=== PATIENT | male | born 1955 | race Caucasian/White ===

== ENCOUNTER 2017-10-20 13:30 | Outpatient (CLI) | payer OTHER ==
[~2017-10-20 13:30] MED LIST: Iopamidol 370 76% 100 ML VIAL ONE
--- NOTE | 2017-10-20 18:42 | CT ---
CT ABDOMEN WITH AND WITHOUT CONTRAST CT PELVIS WITH AND WITHOUT CONTRAST (CT UROGRAM) 10/20/17 HISTORY: 62-year-old male with microscopic hematuria. Dr. Moscoso discussed all the relevant findings by telephone with Dr. Freddy Quiroz at 3:09 p.m. on . COMPARISON: None. TECHNIQUE: No oral contrast. IV contrast: Isovue. Precontrast, nephrographic/venous phase, and pyelographic/excretory phase, scans of entire abdomen an d pelvis. Coronal reconstructions of pyelographic/excretory phase. FINDINGS: There are multiple left parapelvic renal cysts. There is no hydroureteronephrosis. No renal, ureteral , or bladder calculus is identified. Urinary bladder is nearly empty. Absent prostate gland. Multiple surgical clips in the prostate bed. There is hyperdense material suggestive of either retained bariu m or appendicoliths, within the lumen of the distal appendix. There is currently no acute appendiciti s. No small bowel dilation. No acute colonic diverticulitis. Mild vascular calcifications of abdomina l aorta without aneurysm. No solid renal mass or renal infarction identified. The distal 2/3 of the gallbladder is contracted, has diffuse wall thickening with increased wall enha ncement, and surrounded by pericholecystic fat stranding representing edema. The proximal third of th e gallbladder appears to have normal wall thickness, and no pericholecystic edema. There appears to b e a focal severe narrowing between the distal abnormal portion and the more normal appearing proximal portion. There are tiny calcifications, a few millimeters in size each, at the junction between the abnormal 2/3 and the normal 1/3 of the gallbladder. There appears to be a stricture at this location where these tiny calculi reside. No intrahepatic biliary ductal dilation. The pancreas, adrenals, liver, and spleen, are normal. No ac [place] colonic diverticulitis. No small bowel dilation. No ascites or pneumoperitoneum. Lung bases show no consolidation or pleural effusion. Small amount of retroareolar breast tissue bilaterally. No card iomegaly. There are multiple mildly and moderately enlarged para-aortic retroperitoneal lymph nodes, mostly on the right side, beginning at the retrocrural level, down to approximately the L3 level, then around t he right common iliac vein. The largest of these is a right para-aortic lymph node measuring approxim ately 1.5 x 1.5 x 2 cm at the L2-3 level (axial image 44 of 218, series 3; coronal image 83 of 162, s eries 601). The others are on the order of 1 cm in size each. There are relatively fewer such mildly enlarged lymph nodes in the left para-aortic region, and they are of smaller sizes. There is mild, diffuse fat stranding of the central portion of the mesentery (kim mesentery). This is associated with multiple mildly enlarged mesenteric lymph nodes within the region of mild fat stra nding. These lymph nodes are on the order of 1 cm in size each. These include multiple mildly enlarge d celiac axis lymph nodes. There are multiple surgical clips along the bilateral external iliac chains. There are also additiona l enlarged right external iliac chain lymph nodes. One of the larger ones which is fpc between th e external and internal iliac vessels, measures approximately 1.5 x 0.7 cm (axial image 80 of 218, se rasheed 30). Another right common iliac/iliac bifurcation junction lymph node is approximately 1.2 x 0.8 cm (axial image 71 of 218, series 3). There is an approximately 2.5 x 1.5 x 2.5 cm sclerotic osteoblastic lesion involving the left iliac b one (axial image 69 of 218, series 3; coronal image 112 of 162, series 601). IMPRESSION: 1. Mild to moderate retroperitoneal lymphadenopathy, mild central mesenteric lymphadenopathy wit hin kim mesentery, and right iliac chain mild lymphadenopathy. 2. Possibilities include lymphoma, mesenteric panniculitis, mesenteric lymphadenitis, metastatic retroperitoneal and iliac chanin lymphadenopathy (such as from prostate cancer), or perhaps a combin ation of these. 3. A PET scan may be useful. 4. No major pathology of the kidneys or collecting systems. 5. Findings suggestive of cholecystitis isolated to the distal 2/3 of the gallbladder. There is a possibility that there is a stricture or obstruction where there are gallstones, in the mid body of the gallbladder lumen. 6. Osteoblastic lesion involving the left iliac bone abutting the left SI joint. One possibility is an osteoblastic metastasis. 7. Bilateral gynecomastia. 8. Status post total prostatectomy and bilateral iliac chain lymph node dissection. Code CR 1. POS: [facility]
== END 2017-10-20 13:31 | disposition home or self-care (01) ==
LOC: CT 13:30
PROVIDERS: ATTEND Urology
DX: R31.9 Hematuria, unspecified (principal); R59.0 Localized enlarged lymph nodes; M89.9 Disorder of bone, unspecified; N62 Hypertrophy of breast; Z90.79 Acquired absence of other genital organ(s)
CPT/HCPCS: 74178; 82565

== ENCOUNTER 2018-05-23 11:13 | Day surgery (SDC) | payer OTHER ==
[2018-05-22 12:39] VITALS: BMI 29.5
[2018-05-23] MEDS ORDERED: Levofloxacin 500 mg/D5W 100 ml Premix Bag ONE (11:48)
[2018-05-23 12:13] LABS: Hemoglobin 10.3 g/dL (14.0-18.0); Mean Corpuscular HGB CONC 32.7 g/dL (32.0-36.0); Mean Corpuscular Hemoglobin 28.8 pg (27.0-31.0); Mean Corpuscular Volume 87.9 fL (78.0-98.0); Mean Platelet Volume 5.9 fL (7.4-10.4); Platelet Count 381 thou/uL (130-400); RBC Distribution Width 16.6 % (11.5-14.5); Red Blood Cell (RBC) Count 3.59 mill/uL (4.70-6.10); White Blood Cell (WBC) Count 2.5 thou/uL (4.8-10.8)
[2018-05-23 12:22] LABS: Prothrombin Time 13.7 SEC (12.0-14.7)
[2018-05-23 12:23] LABS: PTT 30.6 SEC (22.9-36.1)
[2018-05-23 12:41] LABS: Anion Gap 14 mmol/L (10-20); BUN (Urea Nitrogen) 10 mg/dL (8.4-25.7); Calc. Creatinine Clearance 117 mL/min (70-130); Calcium 9.4 mg/dL (7.8-10.44); Carbon Dioxide 26 mmol/L (23-31); Chloride 105 mmol/L (98-107); Estimated GFR-MDRD Greater than 90; Glucose 107 mg/dL (80-115); Potassium 4.3 mmol/L (3.5-5.1); Sodium 141 mmol/L (136-145)
[2018-05-23] MEDS ORDERED: Dexamethasone 20 MG/5 ML VIAL ONE (12:49)
[2018-05-23] MEDS ORDERED: PROPOFOL 200 MG/20 ML VIAL ONE (12:49)
[2018-05-23] MEDS ORDERED: Ondansetron HCl/PF 4 MG/2 ML Vial ONE (12:49)
[2018-05-23] MEDS ORDERED: Lidocaine 1% PF 5 ML VIAL ONE (12:49)
[2018-05-23] MEDS ORDERED: Fentanyl 100 MCG/2 ML VIAL ONE ×2 (13:13→15:17)
[2018-05-23] MEDS ORDERED: Fentanyl 250 MCG/5 ML VIAL ONE (13:13)
[2018-05-23] MEDS ORDERED: Famotidine/PF 20 mg/2ml Vial ONE (13:13)
[2018-05-23] MEDS ORDERED: TROSPIUM 20 MG TABLET PO SCH ×2 (17:45→21:00)
--- NOTE | 2018-05-23 23:12 | OP ---
DATE OF PROCEDURE: 05/23/2018 PREOPERATIVE DIAGNOSES: Prostate cancer, gross hematuria, urinary retention, and anastomotic/membran ous urethral stricture. POSTOPERATIVE DIAGNOSES: Prostate cancer, gross hematuria, urinary retention, and anastomotic/membra nous urethral stricture. PROCEDURE PERFORMED: Cystoscopy, laser Bugbee fulguration of bladder lesions that are related to prior radiation and difficult Meneses placement. SURGEON: Dr. Freddy Quiroz. ANESTHESIA: General. ESTIMATED BLOOD LOSS: Less than 50 mL DRAINS PLACED: An 18-Iraqi [place] tip catheter placed over a guidewire. FINDINGS: There was a stricture of the anastomosis that we opened up with the Holmium laser. There were numerous telangiectatic vessels and areas that appeared to have recently bled on the floor and n ear the trigone that were probably all related to prior radiation. There is no evidence of bladder t umor, foreign body, stone or fistula. OPERATIVE TECHNIQUE: After receiving IV antibiotics and obtained written verbal consent from the pat iebrandyn, he was taken to the operating suite. He was placed in supine position on the treatment table. PlexiPulses placed on his lower extremities and turned on. He was given general anesthetic en dotracheal intubation. He was then placed in the dorsal lithotomy position. His Meneses catheter was removed and sterilely prepped and draped. Cystoscopy was performed with a 22-Iraqi sheath. This wa s well lubricated and passed down through the male urethra to the level of the anastomotic stricture. This was opened up at the 12 o'clock position with the holmium laser until a 22 Iraqi easily slid in and out through this region. We then brought in a Bugbee and switched over to sterile water and u sed this to cauterize the bladder lesions that were all to me appearing to be radiation related, noth ing that looked like a primary bladder cancer or direct involvement of prostate cancer along the muco sa of the bladder. No biopsies were done. At this point, there was good hemostasis. A guidewire wa s fed through the scope. The instruments were removed. The Councill tip catheter 18 Iraqi was plac ed over this and about 20 mL placed in it and it was draining clear urine. He was taken out of dorsa l lithotomy position, awakened, extubated, and taken by stretcher to the recovery room.
[2018-05-24] MEDS ORDERED: TROSPIUM 20 MG TABLET PO SCH (09:00)
--- NOTE | 2018-05-29 07:53 | PQF ---
[facility] POST DISCHARGE CLINICAL DOCUMENTATION IMPROVEMENT CLARIFICATION FORM l Todays Date: 05/29/18 l Patients Name Sergey summers l l Admit Date 05/23/18 l Disch Date 05/23/18 l Registered Route Associate Name Sirisha Patrick Email:[email or web address] Cell: Present Clinical Indicators - Signs / Symptoms Results and Location in Medical Record [ ] Documentation of: [ ] [ ] Documentation of: [ ] [ ] Documentation of: [ ] [ ] Documentation of: [ ] [ ] Risks [ ] [ ] [ ] Treatment [ ] Missing bladder lesion size in [employer] Please specify the Bladder lesion size [ ] [ ] Dr. Richie De La Paz The documentation in this patients record requires clarification to ensure coding compliance and accuracy. Check the appropriate box and include in your discharge summary. [ ] [ ] [ ] [ ] Please check this box if this does not apply to this patient [ ] Unable to determine [ ] Other diagnosis: Review the following information and exercise your independent professional judgment in responding to the clarification. Based upon the clinical findings, risk factors, and treatment, please clarify if you are treating one of the above probable or suspected diagnoses. Physician Signature: Date Time MTDD
--- NOTE | 2018-07-30 08:07 | PQF ---
POST DISCHARGE CLINICAL DOCUMENTATION IMPROVEMENT CLARIFICATION FORM l Todays Date: 07/30/2018 l Patients Name German Rincon l l Admit Date 05/23/18 l Disch Date 05/23/18 Pastoral Counselor Contact Name: Email: Cell: Present Clinical Indicators - Signs / Symptoms Results and Location in Medical Record [ ] Documentation of: [ ] [ ] [ ] Risks [ ] [ ] [ ] Treatment [ ] Missing Bladder Lesion Size Please specify the bladder lesion size. [ ] [ ] Dr. Freddy Quiroz The documentation in this patients record requires clarification to ensure coding compliance and accuracy. Check the appropriate box and include in your discharge summary/addendum. [ ] [ ] [ ] Please check this box if this does not apply to this patient [ ] Unable to determine [ ] Other diagnosis/procedure: Review the following information and exercise your independent professional judgment in responding to the clarification. Based upon the clinical findings, risk factors, and treatment, please clarify if you are treating one of the above probable or suspected diagnoses. Physician Signature: Date Time MTDD
== END 2018-05-23 18:19 | disposition home or self-care (01) ==
LOC: SDC 11:13
PROVIDERS: ATTEND Urology
PROC: 0T5B8ZZ Destruction of Bladder, Via Natural or Artificial Opening Endoscopic (ICD-10-PCS; principal; 2018-05-23)
DX: N32.9 Bladder disorder, unspecified (principal); C61 Malignant neoplasm of prostate; R31.0 Gross hematuria; N35.9 Urethral stricture, unspecified; I10 Essential (primary) hypertension
CPT/HCPCS: 80048; 85027; 85610; 85730; 96374; J0131; J1100; J1956; J2001; J2405; J2704; J3010; S0028